=== PATIENT | male | born 1945 | race Two or more races ===

== ENCOUNTER 2021-03-10 10:38 | Outpatient (CLI) | payer MEDICARE, BC, SELFPAY ==
[2021-03-10 10:45] VITALS: BP 137/93; PULSE 68; RESP 16; TEMP 36.5; O2SAT 99; BMI 26.2
[2021-03-10] MEDS: 0.9% Saline Lock 10 ML Syringe IV (10:51)
[2021-03-10 11:22] VITALS: BP 121/84; PULSE 57; RESP 16; TEMP 37.2; O2SAT 99
[2021-03-10 12:20] VITALS: BP 126/78; PULSE 43; RESP 16; TEMP 37.1; O2SAT 98
== END 2021-03-10 23:59 | disposition home or self-care (01) ==
LOC: MS3OUT 10:39 → MS3 10:39
PROVIDERS: Referring Provider Nurse Practitioner Acute Care; Visit Provider Nurse Practitioner Acute Care
DX: U07.1 COVID-19 (principal)
CPT/HCPCS: J7050; M0245; Q0245; A4216